=== PATIENT | female | born 1960 | race Caucasian/White ===

== ENCOUNTER 2017-05-13 09:22 | Emergency (ER) | payer OTHER, BC ==
[~2017-05-13] VITALS: Ht 152.4 cm; Wt 75.7 kg
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
[~2017-05-13 09:22] MED LIST: CYMBALTA PO; DETROL PO; LORTAB 7.5-5001 TAB PO; PCN PO; PROZAC PO; SEROQUEL PO; SIMVASTATIN PO
== END 2017-05-13 10:43 | disposition home or self-care (01) ==
LOC: CED 09:22 → CFTX 09:22
DX: S40.011A Contusion of right shoulder, initial encounter (principal); S20.212A Contusion of left front wall of thorax, initial encounter; Z23 Encounter for immunization; V49.40XA Driver injured in collision with unspecified motor vehicles in traffic accident, initial encounter; Y93.89 Activity, other specified; Y92.410 Unspecified street and highway as the place of occurrence of the external cause
CPT/HCPCS: 71101; 73030; 90471; 90715; 99283